=== PATIENT | male | born 1960 | race Caucasian/White ===

== ENCOUNTER 2018-06-15 15:19 | Inpatient (IN) | payer BC ==
[~2018-06-15] VITALS: Ht 182.9 cm; Wt 91.6 kg
[2018-06-15 15:29] VITALS: BP 220/124
[2018-06-15 16:02] LABS: ABSOLUTE EOSINOPHILS 0.2 thou/uL (0.0-0.7); ABSOLUTE LYMPHOCYTES 1.2 thou/uL (0.8-5.3); ABSOLUTE MONOCYTES 0.3 thou/uL (0.0-1.2); BASOPHILS 0.6 %; EOSINOPHILS 4.3 %; HEMATOCRIT 31.5 % (42.0-52.0); HEMOGLOBIN 11.2 gm/dL (14.0-18.0); LYMPHOCYTES 24.9 %; MCH 32.1 pg (26.0-34.0); MCHC 35.5 g/dL (28.0-37.0); MCV 90.4 fL (80.0-100.0); MONOCYTES 7.1 %; NUCLEATED RBCS 0 /100WBC; PLATELET COUNT* 169 thou/uL (150-400); POLYS 63.1 %; RBC 3.48 mil/uL (4.50-6.00); RDW-CV 13.5 % (10.5-14.5); WBC 4.8 thou/uL (4.0-11.0)
[2018-06-15 16:02] LABS: URINE BILIRUBIN NEGATIVE (Negative); URINE BLOOD 1+ (Negative); URINE CLARITY CLEAR; URINE COLOR YELLOW; URINE GLUCOSE-RANDOM NEGATIVE (Negative); URINE KETONES NEGATIVE (Negative); URINE LEUKOCYTES-REFLEX NEGATIVE (Negative); URINE NITRITE-REFLEX NEGATIVE (Negative); URINE PROTEIN 2+ (Negative); URINE UROBILINOGEN 0.2 E.U./dl (0.2-1.0)
[2018-06-15 16:17] LABS: ALBUMIN 3.8 g/dL (3.4-5.0); ALKALINE PHOSPHATASE 58 U/L (46-116); ANION GAP 10 mmol/L (7-16); BUN 24 mg/dL (7-18); CALCIUM 8.8 mg/dL (8.5-10.1); CHLORIDE 99 mmol/L (98-107); CO2 27 mmol/L (21-32); CREATININE 2.6 mg/dL (0.6-1.3); GLUCOSE 131 mg/dL (70-99); POTASSIUM 3.6 mmol/L (3.5-5.1); SGOT 25 U/L (15-37); SGPT 27 U/L (30-65); SODIUM 136 mmol/L (136-145); TOTAL BILIRUBIN 0.6 mg/dL (<0.1-1.0); TROPONIN-I LEVEL <0.06 ng/mL (<0.06)
[2018-06-15 16:18] LABS: BACTERIA-REFLEX 1-9 Few /HPF (None Seen); CRYSTALS None Seen /LPF (None Seen); MUCUS None Seen strn/LPF (None Seen); SQUAMOUS NONE SEEN /LPF (0-3)
[2018-06-15 16:19] LABS: CASTS None Seen /LPF (None Seen); URINE RBC 0-2 Rare /HPF (0-2); URINE WBC-REFLEX None Seen /HPF (0-5)
[2018-06-15 17:08] LABS: AMP/METHAMP Negative (Negative); BARBITURATES Negative (Negative); BENZODIAZEPINES Negative (Negative); COCAINE Negative (Negative); METHADONE Negative (Negative); OPIATES Negative (Negative); PCP Negative (Negative); THC Negative (Negative)
[2018-06-15 17:10] LABS: APTT 28.9 Seconds (25.0-31.3); PROTIME 10.7 Seconds (9.20-11.50)
[2018-06-15 19:22] VITALS: BP 169/100
[2018-06-15 19:45] VITALS: BP 180/99
[2018-06-16] VITALS: BP 172/94
[2018-06-16 04:08] VITALS: BP 162/95
[2018-06-16 05:18] LABS: HEMOGLOBIN 9.7 gm/dL (14.0-18.0); MCH 32.5 pg (26.0-34.0); MCV 90.2 fL (80.0-100.0); MPV 8.4 fl. (7.2-11.1); RBC 2.99 mil/uL (4.50-6.00); RDW-CV 12.9 % (10.5-14.5); WBC 5.7 thou/uL (4.0-11.0)
[2018-06-16 05:50] LABS: ALBUMIN 2.9 g/dL (3.4-5.0); CALCIUM 8.3 mg/dL (8.5-10.1); CREATININE 2.3 mg/dL (0.6-1.3); MAGNESIUM 1.8 mg/dL (1.8-2.4); POTASSIUM 3.6 mmol/L (3.5-5.1); TOTAL BILIRUBIN 0.4 mg/dL (<0.1-1.0); TOTAL PROTEIN 6.3 g/dL (6.4-8.2)
[2018-06-16 08:00] VITALS: BP 137/73
[2018-06-16 12:00] VITALS: BP 133/81
[2018-06-16 12:18] LABS: CHOLESTEROL 246 mg/dL (<200); HDL CHOLESTEROL 50 mg/dL (>40); LDL CHOLESTEROL 141 mg/dL (<100); TC:HDL 4.9 Ratio (Not establshd); TRIGLYCERIDE 275 mg/dL (<150); VLDL 55 mg/dL (<40)
[2018-06-16 12:30] LABS: SERUM ASSESSMENT Clear
[2018-06-16 16:00] VITALS: BP 131/71
[2018-06-16 20:00] VITALS: BP 132/74
[2018-06-17 01:01] LABS: GLYCOHEMOGLOBIN (HGB A1C) 5.5 % (4.8-5.6)
[2018-06-17 04:00] VITALS: BP 145/86
[2018-06-17 04:55] LABS: HEMATOCRIT 24.5 % (42.0-52.0); HEMOGLOBIN 8.7 gm/dL (14.0-18.0); MCH 32.3 pg (26.0-34.0); MCHC 35.4 g/dL (28.0-37.0); MCV 91.4 fL (80.0-100.0); MPV 8.1 fl. (7.2-11.1); RBC 2.68 mil/uL (4.50-6.00); RDW-CV 13.6 % (10.5-14.5); WBC 3.4 thou/uL (4.0-11.0)
[2018-06-17 05:07] LABS: CALCIUM 7.9 mg/dL (8.5-10.1); CREATININE 2.6 mg/dL (0.6-1.3); MAGNESIUM 1.6 mg/dL (1.8-2.4); POTASSIUM 3.6 mmol/L (3.5-5.1)
[2018-06-17 08:00] VITALS: BP 168/94
[2018-06-17 12:00] VITALS: BP 156/95
--- NOTE | 2018-06-17 15:00 | EKG ---
[place] [address] ELECTROCARDIOGRAM REPORT Name: ARCHIE ALLEN Room: [address] IN .R.#: [id number] Admission: 06/15/18 Attend Phys: Juli Oliveira MD Discharge: Date of : 58 Report #: [id number] THIS REPORT FOR: //name// [place] Test Date: 2018-06-15 Test Time: 15:53:16 Pat Name: ARCHIE ALLEN Department: Room: [facility] Gender: M Verification Engineer: Sly HENRIQUEZ : 1960 Requested By: Nichelle Carlson Order Number: [id number] MD: Archie Lyles Measurements Intervals [place] Rate: 91 P: 32 GA: 172 QRS: -36 QRSD: 98 T: 41 QT: 375 QTc: 462 Interpretive Statements Sinus rhythm Left axis deviation Abnormal R-wave progression, late transition No previous ECG available for comparison Electronically Signed On 06-17-2018 15:00:00 CDT by Archie Lyles [email or web address] <ELECTRONICALLY SIGNED> By: Archie Lyles MD, [facility] 06/17/18 1500 1553 1553 Archie Lyles MD, [facility] /EPI
[2018-06-17 16:00] VITALS: BP 172/99
[2018-06-17 19:30] VITALS: BP 164/102
[2018-06-18 04:00] VITALS: BP 147/92
[2018-06-18 04:44] LABS: CALCIUM 8.5 mg/dL (8.5-10.1); CREATININE 2.9 mg/dL (0.6-1.3); POTASSIUM 3.4 mmol/L (3.5-5.1)
[2018-06-18 04:47] LABS: % SATURATION 10 % (20-39); IRON 27 ug/dL (50-175)
[2018-06-18 08:00] VITALS: BP 172/93
--- NOTE | 2018-06-18 09:52 | CON ---
[address] [address] CONSULTATION Name: ALIA ALLEN Room: [address] IN ..#: [id number] Admission: 06/15/18 Attend Phys: Juli Oliveira MD Discharge: Date of : 58 Report #: [id number] THIS REPORT FOR: //name// CC: Juli Howard DATE OF SERVICE: 06/17/2018 NEPHROLOGY CONSULTATION CONSULTING PHYSICIAN: Dr. Oliveira REASON FOR NEPHROLOGY CONSULTATION: Abnormal kidney function. REASON FOR ADMISSION: Hypertensive urgency, elevated creatinine. HISTORY OF PRESENT ILLNESS: The patient is a 57-year-old male who has past medical history of hypertension. He has had high blood pressure for a long time, was at a routine visit to his PCP's office and at that time, he was told to get admitted to the hospital because his systolic blood pressure was in 200s and his creatinine was 2.6. He has past medical history of morbid obesity, diabetes and hypertension. He began keto diet about 2 years ago, lost nearly 100 pounds, went off of all his medications. He does not take any NSAIDs. His creatinine came down to 2.3 yesterday and is again 2.6 today. He has been maintained on IV fluids since he has been here. He does not really consume high sodium diet. He does drink a green smoothie every morning and does eat only one meal a day, consisting of eggs and one avocado. He does not take any herbal supplements or any protein supplements. His blood pressure is starting to get better controlled. He has been started on amlodipine. No history of any kidney stones. Renal ultrasound was normal. ALLERGIES: No known allergies. REVIEW OF SYSTEMS: As mentioned in history of present illness. Currently, he does not have any acute complaints. A 10-point review of systems done negative. PAST MEDICAL HISTORY: Includes history of diabetes, not on any medications; hypertension, was not taking any medications; dyslipidemia; left foot surgery. PAST SURGICAL HISTORY: As above. FAMILY HISTORY: No history of any kidney disease in the family. SOCIAL HISTORY: He lives at home with his . Does not smoke or take alcohol or use illicit drugs. [place] [address] CONSULTATION Name: ALIA ALLEN Room: [address]#: [id number] Admission: 06/15/18 Attend Phys: Juli Oliveira MD Discharge: Date of : 58 Report #: [id number] HOME MEDICATIONS: He reported no home medications. PHYSICAL EXAMINATION: VITAL SIGNS: Blood pressure is 145/86, respiratory rate is 18, pulse rate is 78, temperature 36.6 and pulse ox is 97% and he is on room air. GENERAL: He is awake, alert, oriented x 3, in no acute distress. HEAD, EYES, EARS, NOSE AND THROAT: Mucous membranes are moist. NECK: There is no JVD. CHEST: Bilaterally clear to auscultation. No crackles or wheezing. CARDIOVASCULAR: S1, S2 normal. No murmurs. ABDOMEN: Soft, nondistended, nontender. Bowel sounds are present. EXTREMITIES: There is trace lower extremity edema bilaterally, otherwise symmetrical lower extremities. NEUROLOGICAL: Gross neurological function is intact. Psychological: Mood and affect seem to be normal. LABORATORY DATA: Hemoglobin is 8.7, WBC 3.4. Creatinine is 2.6, magnesium is 1.6. Urine showed 2+ protein and 1+ blood. All other labs were reviewed. IMAGING: Renal ultrasound and chest x-ray were reviewed. ASSESSMENT: 1. Elevated creatinine. This is likely chronic kidney disease and this could be stage 4 chronic kidney disease, which could be associated with uncontrolled hypertension. The patient said that a year ago, he was told that his creatinine is elevated, need to find out his baseline creatinine from Dr. Howard's office. Urinalysis does show 2+ protein, 1+ blood, but no significant red blood cell in it. Renal ultrasound did not show any acute abnormalities. Green smoothie has been associated with too much oxalate load and that can also cause oxalate deposition in the kidney and I have asked him to stop using the green smoothies. 2. Uncontrolled hypertension, the patient was not on any medications. 3. History of diabetes, diet controlled at this point. 4. Mild hypomagnesemia. 5. Proteinuria. 6. Dyslipidemia. 7. Anemia. PLAN: 1. Check a urine protein to creatinine ratio. 2. Find out baseline creatinine. 3. He is on amlodipine, we will add chlorthalidone 25 mg a day for better blood pressure control. Eventually, he might benefit from MANJIT inhibitor or ARB, but that will depend upon the amount of proteinuria and also how his kidney function does. 4. Asked him to stop all green smoothies, he should be on a heart healthy, low-sodium diet. [address] [place] [address] CONSULTATION Name: ALIA ALLEN Room: [address] IN [facility].#: [id number] Admission: 06/15/18 Attend Phys: Juli Oliveira MD Discharge: Date of : 58 Report #: [id number] 5. We will need lipid management also by primary. 6. I's and O's. 7. We will also check his iron parameters. Thank you for this consultation. Discussed with the patient as well as the patient's nurse. We will continue to follow along with you. If labs are stable tomorrow and his blood pressure is better controlled, then he should be able to go home. I did explain to him that he might need renal biopsy if his kidney function keeps declining or if his proteinuria does not improve after controlling his blood pressure. <ELECTRONICALLY SIGNED> By: Najma Davey MD 06/18/18 0952 [id number] Davey MD /nt
[2018-06-18 11:07] LABS: IgA 135 mg/dL (90-386); IgG 995 mg/dL (700-1600); IgM 28 mg/dL (20-172)
[2018-06-18 12:10] LABS: INFLUENZA A ANTIGEN None Detected (None Detect); INFLUENZA B ANTIGEN None Detected (None Detect)
[2018-06-18 15:26] LABS: URINE BILIRUBIN NEGATIVE (Negative); URINE BLOOD 2+ (Negative); URINE CLARITY CLEAR; URINE COLOR YELLOW; URINE GLUCOSE-RANDOM TRACE (Negative); URINE KETONES NEGATIVE (Negative); URINE LEUKOCYTES-REFLEX NEGATIVE (Negative); URINE NITRITE-REFLEX NEGATIVE (Negative); URINE PROTEIN 3+ (Negative); URINE SPECIFIC GRAVITY 1.015 (1.005-1.030); URINE UROBILINOGEN 0.2 E.U./dl (0.2-1.0)
[2018-06-18 15:42] LABS: CRYSTALS None Seen /LPF (None Seen); HYALINE CASTS 0-3 Few /LPF (None Seen); MUCUS None Seen strn/LPF (None Seen); SQUAMOUS NONE SEEN /LPF (0-3)
[2018-06-18 15:43] LABS: BACTERIA-REFLEX 1-9 Few /HPF (None Seen); URINE WBC-REFLEX None Seen /HPF (0-5)
[2018-06-18 15:44] LABS: URINE RBC 3-10 Few /HPF (0-2)
[2018-06-18 16:00] VITALS: BP 133/74
[2018-06-18 20:30] VITALS: BP 132/76
[2018-06-19 00:30] VITALS: BP 142/80
[2018-06-19 05:00] VITALS: BP 187/97
[2018-06-19 06:01] LABS: CALCIUM 8.3 mg/dL (8.5-10.1); CREATININE 3.1 mg/dL (0.6-1.3); POTASSIUM 4.3 mmol/L (3.5-5.1)
[2018-06-19 06:42] LABS: ABSOLUTE LYMPHOCYTES 0.8 thou/uL (0.8-5.3); ABSOLUTE MONOCYTES 0.5 thou/uL (0.0-1.2); ABSOLUTE NEUTROPHILS 1.6 thou/uL (1.6-8.1); BASOPHILS 0.7 %; EOSINOPHILS 1.3 %; HEMATOCRIT 28.6 % (42.0-52.0); HEMOGLOBIN 10.1 gm/dL (14.0-18.0); LYMPHOCYTES 26.8 %; MCH 32.3 pg (26.0-34.0); MCHC 35.3 g/dL (28.0-37.0); MCV 91.7 fL (80.0-100.0); MONOCYTES 16.1 %; MPV 8.8 fl. (7.2-11.1); NUCLEATED RBCS 0 /100WBC; PLATELET COUNT* 98 thou/uL (150-400); POLYS 55.1 %; RBC 3.12 mil/uL (4.50-6.00); RDW-CV 13.4 % (10.5-14.5); WBC 2.9 thou/uL (4.0-11.0)
[2018-06-19 06:43] LABS: ALBUMIN 2.8 g/dL (3.4-5.0); MAGNESIUM 1.6 mg/dL (1.8-2.4); TOTAL BILIRUBIN 0.5 mg/dL (<0.1-1.0)
[2018-06-19 09:00] VITALS: BP 144/89
[2018-06-19 12:51] LABS: PLATELET ESTIMATE DECREASED
[2018-06-19 13:05] LABS: ANISOCYTOSIS 1+; LARGE PLATELETS OCCASIONAL; POIKILOCYTOSIS 1+
[2018-06-19 15:11] LABS: KAPPA FREE LIGHT CHAINS 41.6 mg/L (3.3-19.4); LAMBDA FREE LIGHT CHAINS 27.8 mg/L (5.7-26.3)
[2018-06-19 17:00] VITALS: BP 161/98
[2018-06-19 20:00] VITALS: BP 163/86
[2018-06-19 21:07] LABS: HEMOGLOBIN 9.8 g/dL (13.0-17.7)
[2018-06-20 04:30] LABS: HEMATOCRIT 27.3 % (42.0-52.0); HEMOGLOBIN 9.5 gm/dL (14.0-18.0); MCH 31.6 pg (26.0-34.0); MCV 90.5 fL (80.0-100.0); MPV 8.2 fl. (7.2-11.1); RBC 3.01 mil/uL (4.50-6.00); RDW-CV 13.5 % (10.5-14.5); WBC 2.2 thou/uL (4.0-11.0)
[2018-06-20 04:47] LABS: ALBUMIN 2.6 g/dL (3.4-5.0); CALCIUM 8.2 mg/dL (8.5-10.1); MAGNESIUM 1.7 mg/dL (1.8-2.4); POTASSIUM 3.6 mmol/L (3.5-5.1); TOTAL BILIRUBIN 0.4 mg/dL (<0.1-1.0); TOTAL PROTEIN 6.3 g/dL (6.4-8.2)
[2018-06-20 08:00] VITALS: BP 167/103
[2018-06-20] MEDS ORDERED: HYDRALAZINE 2525 MG PO (09:59)
[2018-06-20] MEDS ORDERED: IRON325 PO (09:59)
[2018-06-20] MEDS ORDERED: NORVASC10 MG PO (09:59)
--- NOTE | 2018-06-20 11:29 | CON ---
[address] [address] CONSULTATION Name: ALIA ALLEN Room: [address] IN .R.#: [id number] Admission: 06/15/18 Attend Phys: Juli Oliveira MD Discharge: Date of : 58 Report #: [id number] THIS REPORT FOR: //name// CC: Juli Howard DATE OF SERVICE: 06/19/2018 INFECTIOUS DISEASE CONSULTATION: ATTENDING PHYSICIAN: Dr. Oliveira. REASON FOR EVALUATION: Nosocomial fevers. HISTORY OF PRESENT ILLNESS: Chart reviewed, patient examined. This is a 57-year-old gentleman with known history of diabetes mellitus, hypertension, who was admitted at redirection of his primary care physician. He was found to be in renal failure with a creatinine over 2 and urinalysis, proteinuria. He noted he lost significant amount of weight on keto diet. Prior to this admission, he was not aware of any fevers. Occasionally, he would have some chills. Denies any significant pulmonary or gastrointestinal complaints nor any head and neck complaints other than perhaps some mild sore throat. Denies any sinus issues, no recent dental work. Denies any generalized arthralgias, myalgias, new-onset eruptions. In addition, he denies any particular exposure history including recent travel. He has only been overseas once to [place], no animal exposure. He is . Drug screen was negative. Initial white count was 4.8; however, repeat is now 2.9. He is anemic, hemoglobin of 10.1 and thrombocytopenic which is new since admission. The quantitative immunoglobulin is otherwise unremarkable. Influenza antigen detection was negative. Urinalysis did confirm marked proteinuria, no white cells seen. Chest x-ray was otherwise unremarkable as well. It is notable initially that he had been afebrile for up to 48 hours since admission. He has had intermittent fevers since then as high as last evening 102.7, although he is 98 this morning, is not overtly toxic appearing. ALLERGIES: None known. CURRENT MEDICATIONS: Include ceftriaxone 1 g daily, hydralazine, acetaminophen, ferrous sulfate, amlodipine, pantoprazole, p.r.n. analgesics and antiemetics. PAST MEDICAL HISTORY: Diabetes mellitus, although he states since he has lost significant weight, this has resolved; hypertension; high cholesterol. SOCIAL HISTORY: Nonsmoker, no ethanol. FAMILY HISTORY: [place] [address] CONSULTATION Name: ALIA ALLEN Room: [address]#: [id number] Admission: 06/15/18 Attend Phys: Juli Oliveira MD Discharge: Date of : 58 Report #: [id number] REVIEW OF SYSTEMS: Otherwise noted above history of present illness. PHYSICAL EXAMINATION: GENERAL: He is alert, cooperative, appropriate, appears to be generally well nourished. VITAL SIGNS: Temperature 98, T-max overnight of 102.7, he had a temperature pulse association and at that point pulse was 95 and now it is 65, respirations 15, blood pressure is 187/97. SKIN: Warm, dry. There are no rashes. HEENT: Normocephalic. Extraocular muscles intact. NECK: Supple. LUNGS: Clear to auscultation. HEART: Regular. I do not appreciate any murmur. ABDOMEN: Soft, nontender, nondistended. There is no appreciable organomegaly. GENITOURINARY: Deferred. RECTAL: Deferred. LABORATORY DATA: Blood cultures collected on the are sterile thus far. Lactic acid of 0.7. CBC: White count of 2.9, H and H 10.1 and 28.6, platelets of 98. Electrolytes: Sodium 143, potassium 4.3, chloride 108, bicarbonate is 28, BUN and creatinine 31 and 3.1, glucose of 132. AST of 62, ALT of 24, anion gap of 7. Total protein 6.0, albumin 2.8, estimated GFR of 21. Urine culture pending. Micro showed no white cells, 1-9 bacteria, 2+ protein. Chest x-ray on followup mild bibasilar atelectasis. Influenza antigens were negative. ASSESSMENT: 1. Nosocomial fevers of unclear etiology. I do not find a focus of pyogenic infection at this point and I think it is reasonable to continue empiric therapy with ceftriaxone. He seemingly is better. It is not clear that he got particularly toxic with high-grade fever, certainly a viral etiology at this time of year could be in play. He is interestingly pancytopenic. It again may go along with viral etiology. He had absolute lymphocyte count initially of 1200, now 800. We will do additional diagnostic testing and I think it is reasonable to continue the ceftriaxone for now. Monitor expectantly. If there is development of new signs or symptoms, would pursue those. This may well be a noninfectious cause. <ELECTRONICALLY SIGNED> By: Tyrell Laird MD 06/20/18 1129 1221 [id number] Laird MD /nt
[2018-06-20 12:58] VITALS: BP 167/103
[2018-06-20] MEDS ORDERED: CEFUROXIME250 MG PO (13:09)
[2018-06-20 13:15] VITALS: BP 167/103
[2018-06-20 13:18] VITALS: BP 167/103
== END 2018-06-20 14:14 | disposition home or self-care (01) | DRG 683 ==
LOC: M.ERS 15:19 → M.TBA-ER 16:54 → M.2W 19:49 → M.ORTHSURG 06-17 20:05
PROVIDERS: Internal Medicine; Physician Assistant; ADMIT Internal Medicine
DX: N17.9 Acute kidney failure, unspecified (principal); I16.1 Hypertensive emergency; D61.818 Other pancytopenia; N18.4 Chronic kidney disease, stage 4 (severe); E78.00 Pure hypercholesterolemia, unspecified; I16.0 Hypertensive urgency; E78.5 Hyperlipidemia, unspecified; I12.9 Hypertensive chronic kidney disease with stage 1 through stage 4 chronic kidney disease, or unspecified chronic kidney disease; E83.42 Hypomagnesemia; E11.22 Type 2 diabetes mellitus with diabetic chronic kidney disease; D50.9 Iron deficiency anemia, unspecified; N28.1 Cyst of kidney, acquired; Z72.4 Inappropriate diet and eating habits; Z79.899 Other long term (current) drug therapy

== ENCOUNTER → 2018-07-06 | Outpatient (CLI) | payer OTHER ==
[~2018-07-06] MED LIST: CEFUROXIME250 MG PO; HYDRALAZINE 2525 MG PO; IRON325 PO; NORVASC10 MG PO
== END ==
LOC: M.CT 14:15
DX: Z13.6 Encounter for screening for cardiovascular disorders (principal)